=== PATIENT | male | born 1960 | race Caucasian/White ===

== ENCOUNTER 2021-06-30 06:40 | Emergency (ER) | payer OTHER ==
[~2021-06-30] VITALS: Ht 195.6 cm; Wt 156.4 kg
[2021-06-30] MEDS ORDERED: PRAMIPEXOLE (07:00)
[2021-06-30] MEDS ORDERED: DULO1CAP5 (07:00)
[2021-06-30] MEDS ORDERED: ZOLO100T (07:00)
[2021-06-30] MEDS ORDERED: LISI10TA22 (07:00)
[2021-06-30] MEDS ORDERED: CYCL-707 (07:00)
[2021-06-30] MEDS ORDERED: VYVA1CAP (07:00)
[2021-06-30] MEDS ORDERED: ANAS1TAB2 (07:00)
[2021-06-30] MEDS ORDERED: CLON1TAB8 (07:00)
[2021-06-30] MEDS ORDERED: LEVO50TA5 (07:00)
[2021-06-30] MEDS ORDERED: TRAM50TA2 (07:00)
[2021-06-30] MEDS ORDERED: PANTOPRAZOLE 40MG VIAL (C9113 PER 1) IV ONE (07:30)
[2021-06-30] MEDS ORDERED: NS 1,000 ML IV ONE ×2 (07:30→12:45)
[2021-06-30] MEDS ORDERED: MORPHINE 4 MG/ML 1ML VIAL/SYRINGE (J2270) IV ONE (07:30)
[2021-06-30] MEDS: GASTROGRAFIN SOLUTION 30ML PO SCH ×2 (08:15→08:45)
[2021-06-30 08:22] LABS: BASO # 0.1 10^3/uL (0.0-0.2); BASO % 0.4 % (0.0-1.0); EOS % 0.1 % (0.0-3.0); HEMOGLOBIN 17.1 g/dl (13.5-17.5); LYMPH % 8.2 % (24.0-44.0); MEAN CORPUSCULAR HEMOGLOBIN 30.7 pg (27.0-33.0); MEAN CORPUSCULAR HGB CONC 34.9 g/dl (32.0-36.5); MONO # 0.7 10^3/uL (0.0-0.8); MONO % 5.5 % (2.0-8.0); NEUTROPHILS # 10.8 10^3/uL (1.5-8.5); NEUTROPHILS % 85.1 % (36.0-66.0); PLATELET COUNT, AUTOMATED 195 10^3/uL (150-450); RED BLOOD COUNT 5.57 10^6/uL (4.30-6.10); WHITE BLOOD COUNT 12.6 10^3/uL (4.0-10.0)
[2021-06-30 08:49] LABS: ALT/SGPT 48 U/L (12-78); AMYLASE 30 U/L (25-115); BILIRUBIN,DIRECT 0.1 MG/DL (0.0-0.2); BILIRUBIN,TOTAL 0.4 MG/DL (0.2-1.0); BLOOD UREA NITROGEN 18 MG/DL (7-18); CALCIUM LEVEL 9.3 MG/DL (8.5-10.1); CARBON DIOXIDE LEVEL 29 MEQ/L (21-32); CHLORIDE LEVEL 99 MEQ/L (98-107); CREATININE FOR GFR 0.91 MG/DL (0.70-1.30); GLOMERULAR FILTRATION RATE > 60.0 (>56); GLUCOSE, FASTING 214 MG/DL (70-100); LIPASE 93 U/L (73-393); SODIUM LEVEL 136 MEQ/L (136-145); TOTAL PROTEIN 7.9 GM/DL (6.4-8.2)
[2021-06-30] MEDS ORDERED: ISOVUE-370 76% 100ML VIAL As Ordered ONE (09:29)
--- NOTE | 2021-06-30 10:08 | REP ---
INDICATION: upper abd pain, hx gastric bypass. COMPARISON: None. TECHNIQUE: Standard helical technique after the intravenous administration of 100 cc Isovue 370 and oral bowel preparatory contrast administration. FINDINGS: Multiple calcified granulomas are seen in the lung bases. Minimal bibasilar subsegmental atelectatic changes are present. There are no pleural or pericardial effusions. There is cholelithiasis. There is a 2 cm sized nonenhancing low-density structure in the posterior segment of the right lobe of the liver consistent with a cyst. There are no enhancing hepatic lesions. The spleen, pancreas, adrenal glands, and kidneys are within normal limits. The abdominal aorta and para aortic regions are within normal limits. The bowel loops and the mesenteries are within normal limits. The patient is status post gastric bypass. There is no free fluid or free air. Bone window technique throughout the examination shows the osseous structures to be within normal limits IMPRESSION: There is cholelithiasis. There is a simple cyst in the liver. <Electronically signed by Alexey Cole > 06/30/21 [id number]
[2021-06-30] MEDS ORDERED: GI COCKTAIL 50ML BTL(HYOSCYAMINE/MAALOX/LIDOCAINE VISCOUS)(1:3:1) PO ONE (10:40)
--- NOTE | 2021-06-30 12:09 | REP ---
INDICATION: upper abd pain, cholelithiasis r/o cholecystitis COMPARISON: None. TECHNIQUE: Real time harley scale ultrasound examination using curved array transducer. FINDINGS: Gallbladder is mildly distended and demonstrates multiple small gallstones/gravel and evidence for sonographic Whittaker sign. No wall thickening or obvious pericholecystic fluid is appreciated. Common bile duct is moderately dilated to 9 mm. Liver demonstrates increased parenchymal echotexture with poor through transmission suggesting fatty infiltration and 2.2 cm cyst in the posterior segment right lobe. The right kidney is normal in reniform shape without hydronephrosis and measures 13.1 x 7.1 x 6.2 cm. No ascites. IMPRESSION: Right upper quadrant pain with gallstones and mildly dilated common bile duct. Findings are equivocal for acute cholecystitis and close clinical observation may be warranted. Hepatosteatosis and benign hepatic cyst. <Electronically signed by Pérez Riojas > 06/30/21 [id number]
[2021-06-30] MEDS ORDERED: PIPERACILLIN/TAZOBACTAM SOD 3.375 GM in D5W MINI-BAG PLUS 50 ML IV ONE ×3 (12:45→19:00)
[2021-06-30] MEDS ORDERED: ONDANSETRON 4MG/2ML VIAL IV ONE (13:25)
[2021-06-30] MEDS ORDERED: NS 1,000 ML IV SCH (16:45)
[2021-06-30] MEDS: MORPHINE 2 MG/ML 1ML VIAL (J2270) IV PRN ×2 (17:05→19:40)
[2021-06-30] MEDS ORDERED: ACETAMINOPHEN *IV* 1,000 MG in IV 1 EA IV ONE (18:00)
[2021-06-30 18:25] LABS: RSV AMPLIFICATION NEGATIVE (NEGATIVE)
[2021-06-30] MEDS ORDERED: LEVO25TA5 PO (19:51)
[2021-06-30] MEDS ORDERED: SERT-141 PO (19:51)
[2021-06-30] MEDS ORDERED: LISI10TA22 PO (19:51)
[2021-06-30] MEDS ORDERED: CYCL-707 PO ×2 (19:53)
[2021-06-30] MEDS ORDERED: CLON1TAB8 PO ×2 (19:53→20:13)
[2021-06-30] MEDS ORDERED: ANAS1TAB2 PO (19:56)
[2021-06-30] MEDS ORDERED: TRAM50TA2 PO ×2 (19:56→20:15)
[2021-06-30] MEDS ORDERED: PRAM1TAB7 PO ×3 (19:59→20:18)
--- NOTE | 2021-06-30 20:02 | REPVR ---
PROCEDURE INFORMATION: Exam: MR Abdomen Without Contrast, Biliary System Exam date and time: 06/30/2021 7:21 PM Age: 61 years old Clinical indication: Abdominal pain; Generalized; Additional info: Upper abd pain, dilated cbd TECHNIQUE: Imaging protocol: MR of the abdomen without contrast. Exam focused on the biliary system and pancreatic ducts. Routine 3D-MRCP images were acquired and processed without radiologist supervision. COMPARISON: CT ABD/PEL W/IV ORAL CONTRAS 06/30/2021 9:45 AM FINDINGS: Liver: There is diffuse loss of hepatic signal on out of phase images in comparison to in phase images consistent with steatosis. No focal abnormalities demonstrated. Liver size is normal. There are multiple small simple appearing hepatic cysts measuring up to 2 cm in the posterior right lobe of the liver. Gallbladder and bile ducts: There are multiple small gallstones present. No evidence of cholecystitis demonstrated. Small low signal foci demonstrated at the distal common bile duct measuring up to 4 mm. Findings may represent distal choledocholithiasis. Common bile duct is dilated to 9.7 mm. Pancreas: Unremarkable. No ductal dilation. Spleen: There is [id number] splenomegaly with a maximum span of 15.6 centimeters. No focal abnormalities demonstrated. Kidneys and ureters: Small bilateral simple appearing renal cysts measure up to 9 mm. No complex features. No follow-up suggested. Intraperitoneal space: No fluid collection. IMPRESSION: 1. There are multiple small gallstones present. No evidence of cholecystitis demonstrated. 2. Small low signal foci demonstrated at the distal common bile duct measuring up to 4 mm. Findings may represent distal choledocholithiasis. Common bile duct is dilated to 9.7 mm. 3. There is diffuse loss of hepatic signal on out of phase images in comparison to in phase images consistent with steatosis. No focal abnormalities demonstrated. Liver size is normal. 4. There are multiple small simple appearing hepatic cysts measuring up to 2 cm in the posterior right lobe of the liver. 5. Small bilateral simple appearing renal cysts measure up to 9 mm. No complex features. No follow-up suggested. 6. There is [id number] splenomegaly with a maximum span of 15.6 centimeters. No focal abnormalities demonstrated. COMMENTS: Consistent with the [employer]'s Incidental Findings Committee white paper (J Am Sheila Radiol 2018): Any incidental renal lesion less than 1 cm or classified as too small to characterize, or any incidental cystic renal lesion characterized as simple-appearing, is likely benign. No follow-up imaging is recommended for these lesions per consensus recommendations based on imaging criteria. Electronically signed by: Magan Milian On 06/30/2021 20:01:47 PM
[2021-06-30] MEDS ORDERED: CYMB1CAP5 PO (20:13)
[2021-06-30] MEDS ORDERED: SYNT50TA PO (20:13)
[2021-06-30] MEDS ORDERED: PRAM1.5T2 PO (20:18)
[2021-06-30] MEDS ORDERED: VITA500T41 PO (20:24)
[2021-06-30] MEDS ORDERED: D31000TA2 PO (20:24)
[2021-06-30] MEDS ORDERED: vitamin (20:24)
[2021-06-30] MEDS ORDERED: ASPI81CH33 PO (20:24)
[2021-06-30] MEDS ORDERED: VITA100T14 PO (20:24)
[2021-06-30] MEDS ORDERED: MELA5TAB7 PO (20:24)
[2021-06-30] MEDS ORDERED: MAGN400T2 PO (20:24)
[2021-06-30] MEDS ORDERED: IRON27TA2 PO (20:24)
[2021-06-30] MEDS ORDERED: B-2100TA PO (20:24)
[2021-06-30] MEDS ORDERED: HOME MED LIST COMPLETE! XX SCH (20:25)
[2021-06-30] MEDS ORDERED: PRAMIPEXOLE 1 MG TAB PO ONE (21:00)
[2021-06-30] MEDS ORDERED: PRAMIPEXOLE 1 MG TAB PO SCH (21:00)
[2021-06-30] MEDS ORDERED: PRAMIPEXOLE 0.25 MG TAB PO ONE (21:00)
[2021-06-30] MEDS ORDERED: PRAMIPEXOLE 0.25 MG TAB PO SCH (21:00)
--- NOTE | 2021-06-30 21:11 | REPVR ---
PROCEDURE INFORMATION: Exam: XR Chest Exam date and time: 06/30/2021 9:03 PM Age: 61 years old Clinical indication: Other: Tachycardia; Additional info: Spo2 92, tachycardia TECHNIQUE: Imaging protocol: XR of the chest. Views: 2 views. COMPARISON: MRI ABDOMEN WITHOUT CONTRAST 06/30/2021 6:32 PM FINDINGS: Lungs: Pulmonary nodules demonstrated bilaterally, findings which may indicate the presence of metastatic disease. Clinical correlation needed. Lungs otherwise clear. Pleural spaces: Unremarkable. No pleural effusion. No pneumothorax. Heart/Mediastinum: Unremarkable. No cardiomegaly. Bones/joints: Unremarkable. IMPRESSION: 1. Pulmonary nodules demonstrated bilaterally, findings which may indicate the presence of metastatic disease. Clinical correlation needed. 2. No acute findings. Electronically signed by: Magan Milian On 06/30/2021 21:11:15 PM
[2021-06-30 21:53] LABS: ALBUMIN 3.8 GM/DL (3.2-5.2); BILIRUBIN,DIRECT 3.4 MG/DL (0.0-0.2); TOTAL PROTEIN 7.2 GM/DL (6.4-8.2)
[2021-06-30 21:55] LABS: BILIRUBIN,TOTAL 4.6 MG/DL (0.2-1.0)
[2021-06-30] MEDS ORDERED: MORPHINE 2 MG/ML 1ML VIAL (J2270) IV ONE (22:40)
[2021-06-30 23:00] VITALS: BP 136/59
--- NOTE | 2021-07-01 09:04 | ED PDOC ---
Post-Departure Follow-Up radiology report faxed to saman Babb Sarah MD Jul 01, 2021 09:04
--- NOTE | 2021-07-01 20:19 | ECGEPIP ---
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 Order Number: [id number] Reading MD: Phil Curtis Measurements Intervals [place] Rate: 64 P: 58 TX: 202 QRS: -52 QRSD: 168 T: 109 QT: 430 QTc: 443 Interpretive Statements Normal sinus rhythm POOR R WAVE PROGRESSION Left bundle branch block NO PRIORS FOR COMPARISON Electronically Signed on 07-01-2021 20:18:37 EST by Phil Curtis
== END 2021-06-30 23:06 | disposition short-term general hospital (02) ==
LOC: M ED 06:40
DX: K80.20 Calculus of gallbladder without cholecystitis without obstruction (principal); R74.02 Elevation of levels of lactic acid dehydrogenase [LDH]; R91.8 Other nonspecific abnormal finding of lung field; K76.0 Fatty (change of) liver, not elsewhere classified; K76.89 Other specified diseases of liver; I44.7 Left bundle-branch block, unspecified; E03.9 Hypothyroidism, unspecified; I10 Essential (primary) hypertension; Z98.84 Bariatric surgery status
CPT/HCPCS: 36415; 71046; 74177; 74181; 76705; 80048; 80076; 81001; 82150; 83605; 83690; 84484; 85025; 87631; 93005; 96365; 96367; 96375; 96376; 99284; C9113; J0131; J2270; J2405; J2543; Q9963; Q9967